=== PATIENT | male | born 2000 | race Caucasian/White ===

== ENCOUNTER 2022-04-14 22:33 | Emergency (ER) | payer MEDICAID, OTHER ==
[~2022-04-14] VITALS: Ht 180.3 cm; Wt 49.0 kg
[~2022-04-14 22:33] MED LIST: IBUP100T7
[2022-04-14] MEDS ORDERED: AMOXICILLIN/POTASSIUM CLAVULANATE 875/125MG TAB PO ONE (23:15)
[2022-04-15] MEDS: AMOXICILLIN/POTASSIUM CLAVULANATE 875/125MG TAB PO NR ×4 (05:45→07:03)
[2022-04-15] MEDS ORDERED: TETANUS, DIPHTHERIA, PERTUSSIS VAC/PF 0.5ML (>10YR OLD) IM ONE (06:00)
[2022-04-15] MEDS ORDERED: LIDOCAINE HCL/EPINEPHRINE 1%-EPI 1:100,000 50 ML VIAL INFIL ONE (06:00)
[2022-04-15] MEDS ORDERED: ACETAMINOPHEN 325MG TABLET PO ONE (06:00)
[2022-04-15] MEDS ORDERED: IBUPROFEN 600MG TABLET PO ONE (06:00)
[2022-04-15] MEDS ORDERED: LIDOCAINE HCL/EPINEPHRINE 1%-EPI 1:100,000 10 ML VIAL INFIL NR (06:15)
[2022-04-15] MEDS ORDERED: LIDOCAINE HCL 1% 20ML VIAL (Pyxis) INJ INFIL ONE (07:15)
[2022-04-15] MEDS ORDERED: LIDOCAINE HCL 1% 10 MG/ML 10ML VIAL IJ NR (07:20)
[2022-04-15] MEDS ORDERED: LIDOCAINE HCL 1% 20ML VIAL (Pyxis) INJ INFIL NR (07:20)
[2022-04-15] MEDS ORDERED: AMPICILLIN SOD/SULBACTAM NA 3 G in SODIUM CHLORIDE 0.9% 100 ML IV STA (07:44)
[2022-04-15] MEDS ORDERED: CEFAZOLIN 1000MG PREMIX 50 ML IV ONE (07:45)
[2022-04-15] MEDS ORDERED: AMOX1TAB16 MT (09:58)
[2022-04-15 10:35] VITALS: BP 106/67
== END 2022-04-15 10:35 | disposition home or self-care (01) ==
LOC: ER 22:33
DX: S91.011A Laceration without foreign body, right ankle, initial encounter (principal); W54.0XXA Bitten by dog, initial encounter; Y93.89 Activity, other specified; Y92.89 Other specified places as the place of occurrence of the external cause; Y99.8 Other external cause status
CPT/HCPCS: 12002; 73610; 90471; 90715; 96365; 99284; J0295; J3490; J7050; Z7610

== ENCOUNTER 2022-04-17 11:27 | Emergency (ER) | payer MEDICAID, OTHER ==
[~2022-04-17] VITALS: Ht 180.3 cm; Wt 50.0 kg
[~2022-04-17 11:27] MED LIST changes: +AMOX1TAB16 MT
[2022-04-17 11:37] VITALS: BP 133/77
[2022-04-17] MEDS ORDERED: IBUP-2029 MT (12:48)
[2022-04-17] MEDS ORDERED: CYCL10TA21 MT ×2 (12:48)
[2022-04-17] MEDS ORDERED: LIDO700A15 TP ×2 (12:48)
== END 2022-04-17 13:03 | disposition home or self-care (01) ==
LOC: ER 11:41
DX: Z48.02 Encounter for removal of sutures (principal)
CPT/HCPCS: 99284; Z7610

== ENCOUNTER 2022-04-23 14:11 | Emergency (ER) | payer MEDICAID ==
[~2022-04-23] VITALS: Ht 180.3 cm; Wt 50.0 kg
[~2022-04-23 14:11] MED LIST changes: +IBUP-2029 MT
[2022-04-23 14:15] VITALS: BP 119/59
== END 2022-04-23 17:51 | disposition home or self-care (01) ==
LOC: ER 14:11
DX: Z48.00 Encounter for change or removal of nonsurgical wound dressing (principal)
CPT/HCPCS: 99281; Z7610

== ENCOUNTER 2022-04-27 06:58 | Emergency (ER) | payer MEDICAID, OTHER ==
[~2022-04-27] VITALS: Ht 182.9 cm; Wt 69.0 kg
[2022-04-27 07:38] VITALS: BP 107/60
== END 2022-04-27 11:47 | disposition left against medical advice (07) ==
LOC: ER 06:58
DX: Z48.00 Encounter for change or removal of nonsurgical wound dressing (principal)
CPT/HCPCS: 99281

== ENCOUNTER 2022-05-05 14:11 | Emergency (ER) | payer OTHER ==
[~2022-05-05] VITALS: Ht 177.8 cm; Wt 50.0 kg
[2022-05-05 14:20] VITALS: BP 113/70
== END 2022-05-05 16:15 | disposition home or self-care (01) ==
LOC: ER 14:11
DX: Z48.00 Encounter for change or removal of nonsurgical wound dressing (principal)
CPT/HCPCS: 99281

== ENCOUNTER 2022-07-21 10:13 | Emergency (ER) | payer MEDICAID, OTHER ==
[~2022-07-21] VITALS: Ht 180.3 cm; Wt 49.4 kg
[2022-07-21 10:24] VITALS: BP 123/74
[2022-07-21] MEDS ORDERED: ACYC200C31 MT (10:44)
== END 2022-07-21 11:03 | disposition home or self-care (01) ==
LOC: ER 10:30
DX: R21 Rash and other nonspecific skin eruption (principal)
CPT/HCPCS: 99281; 99283